=== PATIENT | male | born 1995 | race Caucasian/White ===

== ENCOUNTER 2018-02-18 19:50 | Emergency (ER) | payer OTHER ==
[~2018-02-18] VITALS: Ht 177.8 cm; Wt 76.2 kg
[2018-02-18 19:52] VITALS: BP 150/88
--- NOTE | 2018-02-18 19:57 | NUR ---
TO BED # 8 AMBULATORY, REPORT GIVEN TO PASCUAL MORRIS.
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
[2018-02-18 20:47] LABS: APPEARANCE,URINE CLEAR (CLEAR); BILIRUBIN,URINE NEGATIVE (NEGATIVE); BLOOD, URINE NEGATIVE (NEGATIVE); COLOR,URINE YELLOW (YELLOW); LEUKOCYTE ESTERASE ,URINE NEGATIVE (NEGATIVE); NITRITE, URINE NEGATIVE (NEGATIVE); UGLUCOSE NEGATIVE (NEGATIVE)
[2018-02-18 21:05] VITALS: BP 138/78
--- NOTE | 2018-02-18 21:05 | NUR ---
Patient discharged with v/s stable. Written and verbal after care instructions given and explained. Patient verbalized understanding. Ambulatory with steady gait. All questions addressed prior to discharge. Advised to follow up with PMD.
== END 2018-02-18 21:05 | disposition home or self-care (01) ==
LOC: MED 19:50
DX: N48.89 Other specified disorders of penis (principal)
CPT/HCPCS: 81003; 99283

== ENCOUNTER 2020-03-01 22:33 | Emergency (ER) | payer OTHER ==
[~2020-03-01] VITALS: Ht 185.4 cm; Wt 89.8 kg
[2020-03-01 22:49] VITALS: BP 135/76
[2020-03-01] MEDS ORDERED: IBUPROFEN 800 MG TAB PO ONE (23:05)
[2020-03-01] MEDS ORDERED: NEOMYCIN/POLYMYXIN/BACITRACIN 0.9 GM/1 PKT TP ONE (23:05)
[2020-03-01] MEDS ORDERED: SULFAMETH/TRIMETH DS 800/160MG 1 TAB PO ONE (23:05)
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
[2020-03-01 23:32] VITALS: BP 135/76
--- NOTE | 2020-03-01 23:32 | NUR ---
Patient discharged with v/s stable. Written and verbal after care instructions given and explained. Patient alert, oriented and verbalized understanding of instructions. Ambulatory with steady gait. All questions addressed prior to discharge. ID band removed. Patient advised to follow up with PMD. Rx of BACTRIM/MOTRIN given. Patient educated on indication of medication including possible reaction and side effects. Opportunity to ask questions provided and answered.
--- NOTE | 2020-03-01 23:34 | NUR ---
PTS WOUNDS WHERE CLEANED WITH NS. BACITRACIN WAS THEN PLACED ON PTS WOUNDS AND WRAPED W/ NON ADHESIVE GAUZE AND ROLL GAUZE.
== END 2020-03-01 23:32 | disposition home or self-care (01) ==
LOC: MED 22:33
DX: S60.511A Abrasion of right hand, initial encounter (principal); W19.XXXA Unspecified fall, initial encounter; Y93.I9 Activity, other involving external motion; Y92.89 Other specified places as the place of occurrence of the external cause; Y99.8 Other external cause status
CPT/HCPCS: 99284